=== PATIENT | female | born 1945 | race American Indian/Alaskan Native ===

== ENCOUNTER 2016-12-15 13:42 | Emergency (ER) | payer MEDICARE ==
[2016-12-15 14:06] VITALS: BP 144/79
[2016-12-15] MEDS ORDERED: NACL 0.9% 1000 ML 1,000 ML IV ONE (14:06)
[2016-12-15 15:01] LABS: Bacteria,Urine 1+ /HPF (Negative); Bilirubin,Urine NEG (Negative); Blood,Urine NEG (Negative); Ketones,Urine NEG (Negative); Leukocyte Esterase,Urine SM (Negative); Mucus,Urine 2+ /HPF; Nitrite,Urine NEG (Negative); Protein,Urine <15 mg/dL mg/dL (Negative); Urobilinogen,Urine < 2.0 mg/dL (<2.0)
[2016-12-15 15:01] LABS: Basophils % (Auto) 0.3 % (0.0-1.8); Eosinophils % (Auto) 1.3 % (0.0-4.3); Hematocrit 40.2 % (30.3-42.9); Hemoglobin 12.8 gm/dl (10.1-14.3); Mean Corpuscular HGB Conc 32 % (30-34); Mean Corpuscular Volume 79 fl (79-97); Platelet Count 205 K/mm3 (140-440); Red Blood Count 5.07 M/mm3 (3.65-5.03); Red Cell Distribution Width 15.5 % (13.2-15.2); White Blood Count 9.3 K/mm3 (4.5-11.0)
[2016-12-15 15:04] LABS: Mean Corpuscular Hemoglobin 25 pg (28-32)
[2016-12-15 15:08] LABS: Alanine Aminotransferase 17 units/L (7-56); Albumin 4.2 g/dL (3.9-5); Albumin/Globulin Ratio 1.3 %; Alkaline Phosphatase 77 units/L (35-129); Anion Gap 20 mmol/L; Bilirubin,Total 0.5 mg/dL (0.1-1.2); Blood Urea Nitrogen 19 mg/dL (7-17); Calcium 9.4 mg/dL (8.4-10.2); Carbon Dioxide 26 mmol/L (22-30); Chloride 102.6 mmol/L (98-107); Glucose 125 mg/dL (65-100); Lipase 15 units/L (13-60); Potassium 4.1 mmol/L (3.6-5.0); Sodium 144 mmol/L (137-145); Total Protein 7.4 g/dL (6.3-8.2)
[2016-12-15 15:09] LABS: INR 1.06 (0.87-1.13); Partial Thromboplastin Time 28.8 Sec. (24.2-36.6)
[2016-12-15] MEDS ORDERED: ZOFRAN IV ONE (21:13)
[2016-12-15] MEDS ORDERED: SUBLIMAZE IV ONE (21:13)
--- NOTE | 2016-12-15 21:19 | Emergency Department Report ---
HPI - General Chief Complaint: GI Bleed Time Seen by Provider: 12/15/16 20:56 - HPI HPI: Room 25 The patient is a 71-year-old female presenting with a chief complaint of rectal bleeding. The patient states yesterday she developed rectal bleeding and noticed red and black blood being passed. Patient denies abdominal pain but admits to nausea vomiting. Patient denies hematemesis. The patient states she' s also had pain in her right flank radiating down her right lower extremity for the past 3 months. Patient states she has not been given a diagnosis for the cause of the pain yet. The patient gives her pain a score of 8/10 Location: Gastrointestinal system, right back Duration: [see above] Quality: Pain Severity: 8/10 Modifying factors: [see above] Context: [see above] Mode of transportation: [not driving] ED Past Medical Hx - Past Medical History Hx Hypertension: Yes Hx CVA: Yes (2013) Hx Diabetes: Yes Hx Arthritis: Yes - Surgical History Hx Cholecystectomy: Yes Additional Surgical History: Hysterectomy, bowel resection secondary to diverticulitis - Family History Family history: no significant - Social History Smoking Status: Former Smoker (none 20 years) Substance Use Type: Alcohol - Medications Home Medications: Home Medications Medication Instructions Recorded Confirmed Last Taken Type ALPRAZolam [Xanax TAB] 1 mg PO BID PRN 10/17/15 10/17/15 Unknown History Lisinopril [Zestril TAB] 10 mg PO BID 10/17/15 10/17/15 Unknown History Mag-Ox 400 mg PO DAILY 10/17/15 10/17/15 Unknown History Ranitidine HCl [Zantac 150 MG TAB] 150 mg PO DAILY 10/17/15 10/17/15 Unknown History Simvastatin [Zocor TAB] 20 mg PO QHS 10/17/15 10/17/15 Unknown History ALBUTEROL Inhaler [ProAir HFA 2 puff IH QID PRN #1 inhalation 10/18/15 Unknown Rx Inhaler] Carvedilol [Coreg] 12.5 mg PO BID #60 tablet 10/18/15 Unknown Rx Ciprofloxacin HCl [Ciprofloxacin 500 mg PO Q12H #10 tab 10/18/15 Unknown Rx TAB] Gabapentin 300 mg PO TID PRN #90 10/18/15 Unknown Rx HYDROcodone/APAP 5-325 [[place] 1 each PO Q6H PRN #20 tablet 10/18/15 Unknown Rx 5-325 mg TAB] Metoclopramide [Reglan TAB] 10 mg PO Q6H PRN #60 tablet 10/18/15 Unknown Rx Omeprazole [PriLOSEC] 40 mg PO QPM #30 cap 10/18/15 Unknown Rx Prednisone [predniSONE 5 mg (6-Day 5 mg PO .TAPER #1 tab.ds.pk 10/18/15 Unknown Rx Pack, 21 Tabs)] glipiZIDE [Glucotrol] 10 mg PO BIDDIAB #30 tablet 10/18/15 Unknown Rx HYDROcodone/APAP 5-325 [[place] 1 - 2 each PO Q6HR PRN #14 tablet 12/15/16 Unknown Rx 5/325] Levofloxacin [Levaquin] 750 mg PO QDAY #7 tablet 12/15/16 Unknown Rx metroNIDAZOLE [Flagyl] 500 mg PO Q6H #28 tablet 12/15/16 Unknown Rx ED Review of Systems ROS: Stated complaint: RECTAL BLEEDING Other details as noted in HPI Comment: All other systems reviewed and negative Constitutional: denies: chills, fever Eyes: denies: eye pain, eye discharge, vision change ENT: denies: ear pain, throat pain Respiratory: denies: cough, shortness of breath, wheezing Cardiovascular: denies: chest pain, palpitations Endocrine: no symptoms reported Gastrointestinal: hematochezia Genitourinary: denies: urgency, dysuria, discharge Musculoskeletal: back pain Skin: denies: rash, lesions Neurological: denies: headache, weakness, paresthesias Psychiatric: denies: anxiety, depression Hematological/Lymphatic: denies: easy bleeding, easy bruising Physical Exam - Physical Exam Vital Signs: Vital Signs 12/15/16 14:01 Temperature 98.2 F Pulse Rate 95 H Respiratory 19 Rate Blood Pressure 144/79 O2 Sat by Pulse 100 Oximetry Physical Exam: GENERAL: The patient is well-developed well-nourished female lying on stretcher not appearing to be in acute distress. [] HEENT: Normocephalic. Atraumatic. Extraocular motions are intact. Patient has moist mucous membranes. NECK: Supple. Trachea midline CHEST/LUNGS: Clear to auscultation. There is no respiratory distress noted. HEART/CARDIOVASCULAR: Regular. There is no tachycardia. There is no gallop rub or murmur. ABDOMEN: Abdomen is soft, with diffuse tenderness but greatest in the right lower quadrant. Patient has normal bowel sounds. There is no abdominal distention. SKIN: There is no rash. There is no edema. There is no diaphoresis. NEURO: The patient is awake, alert, and oriented. The patient is cooperative. The patient has normal speech MUSCULOSKELETAL: Positive straight leg raise test on the right. There is no evidence of acute injury. RECTAL: No external hemorrhoids seen. Possible internal hemorrhoid palpated. Faint guaiac positive only on 1 of 2 sample squares ED Course Vital Signs 12/15/16 14:01 Temperature 98.2 F Pulse Rate 95 H Respiratory 19 Rate Blood Pressure 144/79 O2 Sat by Pulse 100 Oximetry ED Medical Decision Making - Lab Data Result diagrams: 12/15/16 14:29 12/15/16 14:29 Laboratory Tests 12/15/16 12/15/16 12/15/16 14:29 14:29 14:29 WBC 9.3 RBC 5.07 H Hgb 12.8 Hct 40.2 MCV 79 MCH 25 L MCHC 32 RDW 15.5 H Plt Count 205 Lymph % (Auto) 37.4 H Andrews % (Auto) 7.5 H Eos % (Auto) 1.3 Baso % (Auto) 0.3 Lymph # 3.5 Andrews # 0.7 Eos # 0.1 Baso # 0.0 Seg Neutrophils % 53.5 Seg Neutrophils # 5.0 PT 13.7 INR 1.06 APTT 28.8 Sodium 144 Potassium 4.1 Chloride 102.6 Carbon Dioxide 26 Anion Gap 20 BUN 19 H Creatinine 1.0 Estimated GFR > 60 BUN/Creatinine Ratio 19.00 Glucose 125 H Calcium 9.4 Total Bilirubin 0.5 AST 18 ALT 17 Alkaline Phosphatase 77 Total Protein 7.4 Albumin 4.2 Albumin/Globulin Ratio 1.3 Lipase 15 Urine Color Urine Turbidity Urine pH Ur Specific [place] Urine Protein Urine Glucose (UA) Urine Ketones Urine Blood Urine Nitrite Urine Bilirubin Urine Urobilinogen Ur Leukocyte Esterase Urine WBC (Auto) Urine RBC (Auto) U Epithel Cells (Auto) Urine Bacteria (Auto) Urine Mucus Urine Yeast (Budding) Blood Type Antibody Screen 12/15/16 12/15/16 14:31 14:34 WBC RBC Hgb Hct MCV MCH MCHC RDW Plt Count Lymph % (Auto) Andrews % (Auto) Eos % (Auto) Baso % (Auto) Lymph # Andrews # Eos # Baso # Seg Neutrophils % Seg Neutrophils # PT INR APTT Sodium Potassium Chloride Carbon Dioxide Anion Gap BUN Creatinine Estimated GFR BUN/Creatinine Ratio Glucose Calcium Total Bilirubin AST ALT Alkaline Phosphatase Total Protein Albumin Albumin/Globulin Ratio Lipase Urine Color Yellow Urine Turbidity Cloudy Urine pH 5.0 Ur Specific [place] 1.026 Urine Protein <15 mg/dl Urine Glucose (UA) Neg Urine Ketones Neg Urine Blood Neg Urine Nitrite Neg Urine Bilirubin Neg Urine Urobilinogen < 2.0 Ur Leukocyte Esterase Sm Urine WBC (Auto) 10.0 H Urine RBC (Auto) 5.0 U Epithel Cells (Auto) 7.0 Urine Bacteria (Auto) 1+ Urine Mucus 2+ Urine Yeast (Budding) 2+ Blood Type A POSITIVE Antibody Screen Negative - Radiology Data Radiology results: report reviewed (CT abdomen and pelvis), image reviewed (CT abdomen and pelvis) CT abdomen and pelvis (read by radiologist)-there is wall thickening in the sigmoid colon. It appears may be exaggerated by nondistention. This could be related to colitis in the proper clinical setting. The patient can be further cystoscopically if indicated. No free fluid is seen in the abdomen or pelvis. No gross abnormality is identified in the kidneys. - Differential Diagnosis sciatica, chronic mass, hemorrhoids, GI bleed, appendicitis Critical care attestation.: If time is entered above; I have spent that time in minutes in the direct care of this critically ill patient, excluding procedure time. ED Disposition Clinical Impression: Rectal bleeding, Sciatica, Abdominal pain Disposition: DISCHARGED TO HOME OR SELFCARE Is pt being admited?: No Does the pt Need Aspirin: No Condition: Stable Instructions: Sciatica (ED), Lumbar Radiculopathy (ED), Rectal Bleeding (ED) Additional Instructions: Return to the emergency department immediately should you develop worsening symptoms, fever, inability to tolerate food or liquid or any other concerns. Prescriptions: HYDROcodone/APAP 5-325 [[place] 5/325] 1 - 2 each PO Q6HR PRN #14 tablet PRN Reason: Pain Levofloxacin [Levaquin] 750 mg PO QDAY #7 tablet metroNIDAZOLE [Flagyl] 500 mg PO Q6H #28 tablet Referrals: GAY GUTIÉRREZ MD [Primary Care Provider] - 3-5 Days SHYANNE CLAYTON MD [Staff Physician] - 3-5 Days (Dr. Clayton is a remote sensing technician. Please follow up with him for further evaluation of your rectal bleeding and abdominal pain) TIA WILLIS MD [Staff Physician] - 3-5 Days (Dr. Willis is an orthopedic surgeon. Please follow up with him for further evaluation of your back and hip pain) Forms: Accompanied Note Time of Disposition: 23:02
[2016-12-15] MEDS ORDERED: NACL 0.9% 1000 ML 1,000 ML ONE (21:50)
--- NOTE | 2016-12-15 22:06 | Admit Criteria Form ---
Admission Criteria Documentation: GASTROINTESTINAL BLEEDING Clinical Indications for Inpatient Care (Place 'X' for any and all applicable criteria): Ongoing inpatient care may be indicated for gastrointestinal bleeding with ANY ONE of the following (4)(20)(21)(22)(23)(24): [ ]I. Active bleeding (eg, fresh voluminous blood in emesis or nasogastric aspirate, or per rectum) [ ]II. Hemodynamic instability [ ]III. Anticoagulation therapy or coagulopathy ((eg, advanced liver disease, irreversible anticoagulation) [ ]IV. Ischemic colitis (22) [ ]V. Endoscopy showing arterial bleeding, adherent clot, nonbleeding visible vessel, varices, flat red spots, ulcer size greater than 2 cm, or portal hypertensive gastropathy [ ]. High-risk low platelet count [ ]VII. Anemia requiring inpatient care as indicated by ANY ONE of the following a)[ ] Cognitive impairment b)[ ] Syncope c)[ ] Heart failure d)[ ] Chest pain e)[ ] Dyspnea f)[ ] Other findings suggesting inadequate perfusion (eg, peripheral or myocardial ischemia, end organ dysfunction) [ ]VIII. High-risk low platelet count [ ]IX. Suspected variceal cause of bleeding as indicated by ANY ONE of the following(27)(28): a)[ ] Known varices b)[ ] Hepatomegaly or splenomegaly c)[ ] Ascites d)[ ] Jaundice or scleral icterus e)[ ] History of liver disease (eg, cirrhosis) f)[ ] Physical findings of portal hypertension (eg, caput medusa) g)[ ] Comorbid disorder indicating risk for portal vein thrombosis (eg , abdominal surgery, sepsis, shock, exchange transfusion, prior umbilical vein catheterization) Extended stay may be needed until ALL of the following are present(20)(38)(47): [ ]a) Hemodynamic stability [ ]b) No evidence of active bleeding (eg, stable Hematocrit) [ ]c) Platelet count, prothrombin time, and partial thromboplastin time acceptable for next level of care [ ]d) Surgical or other acute intervention not needed [ ]e) Oral hydration and diet tolerated The original [facility] [id number] content created by Karie Alegre has been revised. The portions of the content which have been revised are identified through the use of italic text or in bold, and Karie Alegre has neither reviewed nor approved the modified material. All other unmodified content is copyright [facility]. Please see references footnoted in the original [facility] edition 2016
--- NOTE | 2016-12-15 22:39 | Cat Scan Report ---
FINAL REPORT EXAM: CT ABDOMEN PELVIS W CON HISTORY: right flank pain, diffuse abdominal pain TECHNIQUE: Serial axial images through the abdomen and pelvis with coronal and sagittal reconstruction. 100 milliliters Omnipaque [id number] PRIORS: CT scan of the chest from 10/16/2015 FINDINGS: There is atelectasis in the dependent portion of the lung bases. No pleural effusion is seen. No focal hepatic lesion is identified. Gallbladder is absent. Pancreas appears normal. Spleen appears normal. Adrenal glands appear normal. Kidneys appear normal. Atherosclerotic changes are seen in the aorta. No aneurysmal dilatation is seen. Bladder is decompressed. Uterus is absent. There is wall thickening in the sigmoid colon. No free fluid. There are degenerative changes in the spine. There is a subcentimeter sclerotic focus in the lateral aspect of the left 9th rib. This appears similar to the prior study. IMPRESSION: 1. There is wall thickening in the sigmoid colon. The appearance may be exaggerated by nondistention. This could be related to colitis in the proper clinical setting. The patient can be further assessed endoscopically if indicated. 2. No free fluid is seen in the abdomen or pelvis. 3. No gross abnormality is identified in the kidneys.
== END 2016-12-16 00:12 | disposition home or self-care (01) ==
LOC: ED 13:42
DX: K62.5 Hemorrhage of anus and rectum (principal); M54.30 Sciatica, unspecified side; I10 Essential (primary) hypertension; Z86.73 Personal history of transient ischemic attack (TIA), and cerebral infarction without residual deficits; E11.9 Type 2 diabetes mellitus without complications; M19.90 Unspecified osteoarthritis, unspecified site; Z90.49 Acquired absence of other specified parts of digestive tract; Z90.710 Acquired absence of both cervix and uterus; Z87.891 Personal history of nicotine dependence
CPT/HCPCS: 36415; 74177; 80053; 81001; 82271; 83690; 85025; 85610; 85730; 86850; 86900; 86901; 93005; 93010; 96361; 96374; 96375; 99284; J2405; J3010; J7030; Q9967